=== PATIENT | female | born 1980 | race Caucasian/White ===

== ENCOUNTER 2024-01-01 19:32 | Emergency (ER) | payer OTHER ==
[~2024-01-01] VITALS: Ht 177.8 cm; Wt 77.1 kg
[2024-01-01 19:59] VITALS: PULSE 86; RESP 17; TEMP 98.2
[2024-01-01 20:05] VITALS: PULSE 92; RESP 16; O2SAT 100
== END 2024-01-01 20:15 | disposition home or self-care (01) ==
LOC: ER 19:35
DX: R07.89 Other chest pain (principal); F41.9 Anxiety disorder, unspecified; R42 Dizziness and giddiness; R94.31 Abnormal electrocardiogram [ECG] [EKG]; F17.210 Nicotine dependence, cigarettes, uncomplicated
CPT/HCPCS: 93005; 99283